=== PATIENT | male | born 1950 | race Caucasian/White ===

== ENCOUNTER 2018-06-07 21:00 | Emergency (ER) | payer OTHER ==
[~2018-06-07] VITALS: Ht 175.3 cm; Wt 78.9 kg
[2018-06-07] MEDS ORDERED: PLAVIX75 MG (21:07)
[2018-06-07] MEDS ORDERED: LIPITOR40 MG (21:07)
[2018-06-07] MEDS ORDERED: ASPIR 8181 MG (21:07)
[2018-06-07] MEDS ORDERED: TOPROL XL25 MG (21:08)
== END 2018-06-07 22:22 | disposition home or self-care (01) ==
LOC: ER 21:00
DX: S00.83XA Contusion of other part of head, initial encounter (principal); W06.XXXA Fall from bed, initial encounter; Y93.89 Activity, other specified; Y92.092 Bedroom in other non-institutional residence as the place of occurrence of the external cause; Y99.8 Other external cause status